=== PATIENT | female | born 1960 | race Two or more races ===

== ENCOUNTER 2024-06-03 12:53 | Emergency (ER) | payer MEDICARE, MEDICAID ==
[~2024-06-03] VITALS: Ht 157.5 cm; Wt 77.8 kg
[2024-06-03 12:58] VITALS: TEMP 98
[2024-06-03 13:16] VITALS: BP 134/79; PULSE 81; RESP 16; O2SAT 96
--- NOTE | 2024-06-03 13:34 | ED.PDOC ---
History of Present Illness HPI Comments 64-year-old female who comes in with chief complaint of head trauma. The patient has pain to the right side of the head with some eye pressure increased. The patient states that a refrigerator door struck her on the right side of the head approximately five days ago. She is now complaining of the headache as well as some nausea which developed today. She is complaining of some mild dizziness. She denies any vomiting or diarrhea. She was able to ambulate into the emergency department's without any difficulty. Chief Complaint: Eye Problem Time Seen by MD: 12:56 Reviewed Notes: Nurses Notes, Medications, Allergies (Allergies to penicillin) Allergies: Coded Allergies: Penicillins (Verified Allergy, Unknown, 06/03/24) Information Source: Patient Mode of Arrival: Ambulatory Severity: Moderate Timing: Days Duration: Since onset Prehospital treatment: None Location: Right-sided head pain associated with nausea Associated signs and symptoms Nausea with dizziness and pain Past Medical History PAST MEDICAL HISTORY: Arthritis, Asthma, High Lipids, Thyroid Past Medical History (Other): Osteoporosis Surgical History (Other): Left foot surgery, left breast surgery, left wrist surgery, left shoulder surgery DARKROOM TECHNICIAN History: No Pertinent DARKROOM TECHNICIAN History Family History Family History: Family hx of DM, Family hx of Cancer Social History Smoker: Non-Smoker Alcohol: Denies ETOH Use Drugs: Denies Drug Use Lives In: Home Constitutional: reports: weakness; denies: chills, diaphoresis, fatigue, fever, malaise, sweats, others EENTM: denies: blurred vision, double vision, ear bleeding, ear discharge, ear drainage, ear pain, ear ringing, eye pain, eye redness, hearing loss, mouth pain, mouth swelling, nasal discharge, nose bleeding, nose congestion, nose pain, photophobia, tearing, throat pain, throat swelling, voice changes, others Respiratory: denies: cough, hemoptysis, orthopnea, SOB at rest, shortness of breath, SOB with excertion, stridor, wheezing, others Cardiovascular: denies: chest pain, dizzy spells, diaphoresis, Dyspnea on exertion, edema, irregular heart beat, left arm pain, lightheadedness, palp itations, PND, syncope, others Gastrointestinal: reports: nausea; denies: abdomen distended, abdominal pain, blood streaked bowels, constipated, diarrhea, dysphagia, difficulty swallowing, hematemesis, melena, poor appetite, poor fluid intake, rectal bleeding, rectal pain, vomiting, others Genitourinary: denies: abnormal vagina bleeding, burning, dyspareunia, dysuria, flank pain, frequency, hematuria, incontinence, pain, , vagina disch arge, urgency, others Neurological: reports: dizziness, headache (Right-sided with eye pressure); denies: fainting, left sided numbness, left sided weakness, numbness, paresthesia, pre-existing deficit, right sided numbness, right sided weakness, seizure, speech problems, tingling, tremors, weakness, others Musculoskeletal: denies: back pain, gout, joint pain, joint swelling, muscle pain, muscle stiffness, neck pain, others Integumetry: denies: bruises, change in color, change in hair/nails, dryness, laceration, lesions, lumps, rash, wounds, others Allergic/Immunocompromised: denies: Difficulty Healing, Frequent Infections, Hives, Itching, others Hematologic/Lymphatic: denies: anemia, blood clots, easy bleeding, easy bruising, swollen glands, others Endocrine: denies: excessive hunger, excessive sweating, excessive thirst, excessive urination, flushing, intolerance to cold, intolerance to heat, unexplained weight gain, unexplained weight loss, others Psychiatric: denies: anxiety, bipolar disorder, depression, hopeless, panic disorder, schizophrenia, sleepless, suicidal, others Physical Exam General Appearance: No Apparent Distress HEENT: Normal ENT Inspection, Pharynx Normal, TMs Normal Neck: Full Range of Motion, Non-Tender, Normal, Normal Inspection Respiratory: Chest Non-Tender, Lungs Clear, No Accessory Muscle Use, No Respiratory Distress, Normal Breath Sounds Cardiovascular: No Edema, No JVD, No Murmur, No Gallop, Normal Peripheral Pulses, Regular Rate/Rhythm Breast Exam: Deferred Gastrointestinal: No Organomegaly, Non Tender, No Pulsatile Mass, Normal Bowel Sounds, Soft Genitalia: Deferred Pelvic: Deferred Rectal: Deferred Extremities: No calf tenderness, Normal capillary refill, Normal inspection, Normal range of motion, Non-tender, No pedal edema Musculoskeletal : Apperance: Normal Neurologic: Alert, motor coach driver II-XII nml as Tested, No Motor Deficits, Normal Affect, Normal Mood, No Sensory Deficits Cerebellar Function: Normal Reflexes: Normal Skin: Dry, Normal Color, Warm Lymphatic: No Adenopathy Was a procedure done? Was a procedure done?: No Differential Dx Considerations may include: Blunt head trauma, intracranial bleed, tension headache X-Ray, Labs, Meds, VS Vital Signs Date Time Temp Pulse Resp B/P (MAP) Pulse Ox O2 Delivery O2 Flow Rate FiO2 06/03/24 13:16 98.0 81 16 134/79 (97) 96 06/03/24 12:58 98.0 81 16 134/79 (97) 96 98.0 06/03/24 12:58 [address] scan of the head is negative The patient was being discharged with a diagnosis of concussion syndrome The patient was given head trauma instructions The patient will return to the emergency department's condition worsens. The patient understands and agrees with the management. Images Reviewed?: Images reviewed and evaluated by me Time of 1ST Reevaluation: 13:34 Reevaluation 1ST: Unchanged Patient Education/Counseling: Diagnosis, Treatment, Prognosis, Need For Follow Up Family Education/Counseling: No Family Present Departure 1 Departure Time of Disposition: 14:41 Impression: Primary Impression: Blunt head trauma Qualified Codes: S09.8XXA - Other specified injuries of head, initial encounter Additional Impression: Concussion syndrome Disposition: 01 HOME / SELF CARE / HOMELESS Condition: Fair Discharged With: Self Critical Care Note Critical Care Time?: No Stability Stability form required: No Heart Score Heart Score: Heart Score Response (Comments) Value History N/A 0 EKG N/A 0 Age N/A 0 Risk Factors N/A 0 Troponin N/A 0 Total 0 ANNY MARR MD Jun 03, 2024 13:34
--- NOTE | 2024-06-03 13:51 | DVH ---
EXAM: CT HEAD WITHOUT CONTRAST HISTORY: trauma COMPARISON: None TECHNIQUE: Axial images of the head were obtained and reformatted in coronal and sagittal planes. All CT scans at this medical facility are performed using dose modulation techniques as appropriate t o a performed exam including the following: Automated exposure control was utilized; adjustment of th e MA and/or KV according to patient size; and use of iterative reconstruction technique. CT Dose: CTDI volume is 55 mGy. Dose-length product is 969 mGy*cm FINDINGS: There is no evidence of acute intracranial hemorrhage, mass, mass effect midline shift. There is no h ydrocephalus or extra-axial fluid collection. Rudd-white matter differentiation is maintained. The visualized paranasal sinuses and mastoid air cells are clear. The calvarium is intact. IMPRESSION: 1. No acute intracranial process. HS:Y
== END 2024-06-03 14:41 | disposition home or self-care (01) ==
LOC: ER 12:53
DX: S09.8XXA Other specified injuries of head, initial encounter (principal); F07.81 Postconcussional syndrome; M19.90 Unspecified osteoarthritis, unspecified site; J45.909 Unspecified asthma, uncomplicated; E78.5 Hyperlipidemia, unspecified; Z98.890 Other specified postprocedural states; Z88.0 Allergy status to penicillin; W22.8XXA Striking against or struck by other objects, initial encounter; Y93.89 Activity, other specified; Y92.89 Other specified places as the place of occurrence of the external cause; Y99.8 Other external cause status
CPT/HCPCS: 70450